=== PATIENT | female | born 1955 | race Caucasian/White ===

== ENCOUNTER → 2020-09-13 | Outpatient (CLI) | payer BC ==
--- NOTE | 2020-09-17 15:43 | RAD ---
EXAM: Bilateral digital screening mammogram with tomosynthesis. HISTORY: 65-year-old female presents for screening mammography. TECHNIQUE: Full-field digital craniocaudal and mediolateral oblique 2D and 3D tomosynthesis images of both breasts are obtained for evaluation. Computer aided detection was applied. COMPARISON: There is no prior study for comparison. This exam serves as a new baseline mammogram. BREAST PARENCHYMAL DENSITY: Level B - Scattered fibroglandular densities. FINDINGS: There are areas of nodularity nodular asymmetry within both breasts, predominantly within t he 8:00 position of the left breast at mid depth, the 3:00 position of the left breast at mid depth, the 6:00 position of the left breast at anterior depth, and the 3:00 position of the right breast at mid depth. There is no architectural distortion or suspicious calcification. IMPRESSION: BI-RADS Category 0: Incomplete. Additional imaging needed. RECOMMENDATION: Further evaluation with full field true lateral views and spot compression views of t he areas of nodularity described above is recommended. Sonographic imaging can also be performed if d eemed indicated based on additional mammographic findings. If your mammogram demonstrates that you have dense breast tissue, which could hide abnormalities, and if you have other risk factors for breast cancer that have been identified, you might benefit from s upplemental screening tests that may be suggested by your ordering physician. Dense breast tissue, i n and of itself, is a relatively common condition. This information is not provided to cause undue c oncern, but rather to raise your awareness and to promote discussion with your physician regarding th e presence of other risk factors, in addition to dense breast tissue. A report of your mammography re sults will be sent to you and your physician. You should contact your physician if you have any ques tions or concerns regarding this report. Mammography is a sensitive method for finding small breast cancers, but it does not detect them all a nd is not a substitute for careful clinical examination. A negative mammogram does not negate a clin ically suspicious finding and should not result in delay in biopsying a clinically suspicious abnorma lity. PQRS compliance statement - Patient information was entered into a reminder system with a target due date for the next mammogram. "Our facility is accredited by the [employer] Mammography [employer]." Electronically signed by: Saumya Garcia MD (09/17/2020 3:40 PM) [id number]
== END ==
LOC: MAMMO 13:09
PROVIDERS: ATTEND Family Medicine
DX: Z12.31 Encounter for screening mammogram for malignant neoplasm of breast (principal); N64.89 Other specified disorders of breast
CPT/HCPCS: 77063; 77067

== ENCOUNTER → 2020-10-04 | Outpatient (CLI) | payer BC ==
--- NOTE | 2020-10-04 13:48 | RAD ---
EXAM: 1. BILATERAL DIGITAL DIAGNOSTIC MAMMOGRAPHY. 2. BILATERAL BREAST ULTRASOUND. HISTORY: Nodules on mammographic screening. Additional imaging is requested. TECHNIQUE: Bilateral full field digital images were obtained in multiple projections including spot c ompression. Computer-aided detection was applied. Sonography of both breasts was performed. COMPARISON: 09/13/2020. COMPOSITION: B. There are scattered areas of fibroglandular density. FINDINGS: The obscured nodules noted on the prior study are not well demonstrated on additional mammo graphic images. Coarse calcifications bilaterally are benign. There is no clearly suspicious mammogra phic finding. On today's sonography, at the right 3:00 position 4 cm from the nipple, a 6 x 2 x 4 mm slightly hypoe choic lobulated nodule may be normal fat interspersed between fibrous septa, or possibly a small fibr oadenoma. There is no internal perfusion on Doppler. At the right 9:00 position 1 cm from the nipple, a mildly complicated cyst appears benign and measures 5 x 4 x 4 mm. Images of the right axilla revea l no suspicious lymph nodes. At the left 3:00 position 4 cm from the nipple, a mostly anechoic oval mass measures 1.4 x 0.4 x 0.7 cm and has a few internal echoes. This is likely a mildly complicated cyst corresponding with the lar gest density on screening mammography. Another mildly comminuted cyst at the 6:00 position 3 cm from the nipple measures 9 x 6 x 3 mm. Another at the 8:00 position 3 cm from the nipple is also consisten t with a mild calcaneus cyst and measures 4 x 3 x 2 mm. This likely corresponds with the most medial nodule. Images of the left axilla reveal no suspicious lymph nodes. BI-RADS CATEGORY 3: Probably Benign. RECOMMENDATION: 1. Six-month follow-up right ultrasound to confirm stability of a 6 x 4 mm lobulated nodule at the ri t 3:00 position 4 cm from the nipple suggesting a small fibroadenoma, to establish the patient's ba seline. Electronically signed by: Don Baker MD (10/04/2020 1:45 PM) [id number]
== END ==
LOC: MAMMO 12:17
PROVIDERS: ATTEND Family Medicine
DX: N63.15 Unspecified lump in the right breast, overlapping quadrants (principal)
CPT/HCPCS: 76641; 77066

== ENCOUNTER → 2021-07-19 | Outpatient (CLI) | payer BC ==
--- NOTE | 2021-07-19 15:44 | RAD ---
XR CHEST 2V INDICATION: Reason: PERSISTENT COUGH, X 3 WEEKS / Spl. Instructions: / History: . COMPARISON STUDY: None. FINDINGS: Lungs: Normal lung volume. No pulmonary mass or consolidation. The tracheobronchial tree and hilar st ructures are normal. Pleura: No pleural effusion or pneumothorax. Heart and Mediastinum: The cardiomediastinal silhouette is normal. The great vessels of the thorax ar e normal. Bones and Soft Tissues: The bones and soft tissues are within normal limits. IMPRESSION: No acute cardiopulmonary process. Electronically signed by: George Watters MD (07/19/2021 3:42 PM) [id number]
== END ==
LOC: RAD 13:06
PROVIDERS: ATTEND Family Medicine
DX: R05.3 Chronic cough (principal)
CPT/HCPCS: 71046